=== PATIENT | male | born 1970 | race Caucasian/White ===

== ENCOUNTER 2017-01-21 18:05 | Emergency (ER) | payer OTHER ==
[2017-01-21 18:41] VITALS: BP 141/92
--- NOTE | 2017-01-21 18:57 | UC ---
Lower Extremity/Ankle HPI - HPI Summary HPI Summary: 46 yo male with right foot pain and swelling states this occurs weekly to monthly since a foot laceration 7 yr ago lacerated tendons wears steel toed boots at work when it gets like this he can not fit into foot followed at [facility] - History of Current Complaint Chief Complaint: UCLowerExtremity Stated Complaint: RIGHT FOOT PAIN Time Seen by Provider: 01/21/17 18:31 Hx Obtained From: Patient Onset/Duration: Sudden Onset, Lasting Days Severity Currently: Moderate Pain Intensity: 6 - declines analgesic Pain Scale Used: 0-10 Numeric Aggravating Factor(s): Standing, Ambulation Alleviating Factor(s): Rest, Elevation Able to Bear Weight: Yes - Allergies/Home Medications Allergies/Adverse Reactions: Allergies Allergy/AdvReac Type Severity Reaction Status Date / Time Aspirin AdvReac Vomiting Verified 01/21/17 18:42 Naproxen AdvReac Vomiting Verified 01/21/17 18:42 Home Medications: Home Medications Lisinopril & Hydrochlorothiazi [Zestoretic 20-12.5 mg-] 1 tab PO DAILY 01/21/17 [History Confirmed 01/21/17] PMH/Surg Hx/FS Hx/Imm Hx Previously Healthy: Yes Cardiovascular History: Hypertension - Surgical History Surgical History: None - Family History Known Family History: Positive: Hypertension - Social History Alcohol Use: Occasionally Substance Use Type: None Smoking Status (MU): Current Every Day Smoker Type: Cigarettes Amount Used/How Often: 1 PPD Length of Time of Smoking/Using Tobacco: 30 YRS Have You Smoked in the Last Year: Yes Review of Systems Constitutional: Negative Skin: Negative Eyes: Negative ENT: Negative Respiratory: Negative Cardiovascular: Negative Gastrointestinal: Negative Genitourinary: Negative Motor: Negative Neurovascular: Negative Musculoskeletal: Arthralgia Neurological: Negative Psychological: Negative Is Patient Immunocompromised?: No All Other Systems Reviewed And Are Negative: Yes Physical Exam Triage Information Reviewed: Yes Appearance: Well-Appearing, No Pain Distress, Well-Nourished Vital Signs: Initial Vital Signs Temp 97.8 F 01/21/17 18:31 Pulse 81 01/21/17 18:31 Resp 16 01/21/17 18:31 BP 141/92 01/21/17 18:31 Pulse Ox 99 01/21/17 18:31 Eyes: Positive: Conjunctiva Clear ENT: Positive: Hearing grossly normal. Negative: Nasal congestion, Nasal drainage, Tonsillar exudate, Trismus, Muffled/hoarse voice Neck: Positive: Supple, Nontender, No Lymphadenopathy Respiratory: Positive: Lungs clear, Normal breath sounds, No respiratory distress, No accessory muscle use Cardiovascular: Positive: RRR Abdominal Exam: Normal Musculoskeletal: Positive: Other: - antalgic gait Neurological: Positive: Alert Skin Exam: Normal Lower Extremity Course/Dx - Differential Dx/Diagnosis Provider Diagnoses: acute exacerbation of chronic right foot pain Discharge - Discharge Plan Condition: Stable Disposition: HOME Forms: *Work Release Additional Instructions: see your MD later this week if not improved Images Feet (Multiple View): 1 - tender/swollen
== END 2017-01-21 18:54 | disposition home or self-care (01) ==
LOC: UCCORT 18:05
DX: M79.672 Pain in left foot (principal); G89.29 Other chronic pain; I10 Essential (primary) hypertension; F17.210 Nicotine dependence, cigarettes, uncomplicated; Z88.6 Allergy status to analgesic agent
CPT/HCPCS: 99201; G0463